=== PATIENT | male | born 1950 | race Caucasian/White ===

== ENCOUNTER 2020-09-06 07:42 | Day surgery (SDC) | payer MEDICARE ==
[~2020-09-06] VITALS: Ht 175.3 cm; Wt 95.6 kg
[~2020-09-06 07:42] MED LIST: AMLO5; BETAGAN; CLON1; SIMV80; VIIBRYD40 MG; Xalatan2.5 ML; ZESTORETIC 20-121 EA
== END 2020-09-06 09:53 | disposition home or self-care (01) ==
LOC: ORSCSDS 07:42
PROVIDERS: Internal Medicine Gastroenterology
PROC: 0DBN8ZX Excision of Sigmoid Colon, Via Natural or Artificial Opening Endoscopic, Diagnostic (ICD-10-PCS; principal; 2020-09-06 09:00)
PROC: 0DBM8ZX Excision of Descending Colon, Via Natural or Artificial Opening Endoscopic, Diagnostic (ICD-10-PCS; principal; 2020-09-06 09:00)
DX: Z12.11 Encounter for screening for malignant neoplasm of colon (principal); Z86.010 Personal history of colon polyps; D12.4 Benign neoplasm of descending colon; K63.5 Polyp of colon; K57.30 Diverticulosis of large intestine without perforation or abscess without bleeding; F32.9 Major depressive disorder, single episode, unspecified; I10 Essential (primary) hypertension; Z79.899 Other long term (current) drug therapy
CPT/HCPCS: 88305; J2704; J7120

== ENCOUNTER 2023-10-27 10:46 | Day surgery (SDC) | payer MEDICARE ==
[~2023-10-27] VITALS: Ht 177.8 cm; Wt 91.3 kg
[~2023-10-27 10:46] MED LIST changes: +Lactated Ringer's 1,000 ML IV ONE; +propofoL 50 ML IV ONE
[2023-10-27] MEDS ORDERED: DORZOLAMIDE 2%10 M3 (11:13)
[2023-10-27] MEDS ORDERED: SERT100 (11:14)
[2023-10-27] MEDS ORDERED: LATA.005SO (11:14)
[2023-10-27] MEDS ORDERED: BRIMONIDINE TART5 M3 (11:14)
[2023-10-27] MEDS ORDERED: LISI5 (11:15)
[2023-10-27] MEDS ORDERED: FINA5 (11:16)
[2023-10-27] MEDS ORDERED: ZOCOR20 MG (11:16)
[2023-10-27] MEDS ORDERED: GALA4 (11:16)
[2023-10-27] MEDS ORDERED: 1/2 NS 250ml250 ML (11:17)
[2023-10-27] MEDS ORDERED: LORA10ER (11:19)
[2023-10-27] MEDS ORDERED: DOXE10 (11:19)
[2023-10-27] MEDS ORDERED: Lactated Ringer's 1,000 ML IV ONE (11:52)
[2023-10-27 13:31] VITALS: BP 128/89
== END 2023-10-27 13:15 | disposition home or self-care (01) ==
LOC: ORSCSDS 10:46
PROVIDERS: Internal Medicine Gastroenterology
PROC: 0DBM8ZX Excision of Descending Colon, Via Natural or Artificial Opening Endoscopic, Diagnostic (ICD-10-PCS; principal; 2023-10-27 12:00)
DX: R15.9 Full incontinence of feces (principal); Z86.010 Personal history of colon polyps; D12.4 Benign neoplasm of descending colon; G31.09 Other frontotemporal neurocognitive disorder; F02.80 Dementia in other diseases classified elsewhere, unspecified severity, without behavioral disturbance, psychotic disturbance, mood disturbance, and anxiety; G47.33 Obstructive sleep apnea (adult) (pediatric); Z79.899 Other long term (current) drug therapy
CPT/HCPCS: 88305; J2704; J7120